=== PATIENT | female | born 1965 | race Caucasian/White ===

== ENCOUNTER 2023-08-07 12:15 | Emergency (ER) | payer OTHER ==
--- NOTE | 2023-08-07 13:20 | XRAY Report ---
PROCEDURE: Shoulder 2+V RT INDICATIONS: Pain TECHNIQUE: 3 views of the shoulder were acquired. COMPARISON: None. FINDINGS: Bones: No fractures or dislocations. No suspicious bony lesions. Visualized ribs appear intact. Soft tissues: Calcific bursitis versus calcific tendinosis. The visualized lungs are within normal l imits. IMPRESSION: Calcific bursitis versus calcific tendinosis. No acute bony abnormality. Reviewed by: Leo Acosta MD on 08/07/2023 1:19 PM PDT Approved by: Leo Acosta MD on 08/07/2023 1:19 PM PDT Station ID: [id number]
--- NOTE | 2023-08-07 13:48 | ED Physician Documentation ---
PD HPI UPPER EXT INJURY - Stated complaint Stated Complaint: RT SHOULDER PX, - Chief complaint Chief Complaint: Ext Problem - History obtained from History obtained from: Patient - Additonal information Additional information: 58-year-old female presents for atraumatic right shoulder pain. States that over the last several days pain has worsened and she has significantly reduced range of motion due to discomfort. 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 Has been taking Tylenol and Motrin at home without significant improvement. Review of Systems Constitutional: denies: Fever, Chills Musculoskeletal: reports: Joint pain. denies: Neck pain, Back pain, Extremity pain, Extremity swelling, Joint swelling PD PAST MEDICAL HISTORY - Past Medical History Past Medical History: Yes - Past Surgical History Past Surgical History: No Ortho: Rotator cuff repair - Present Medications Home Medications: Ambulatory Orders Medication Instructions Recorded Confirmed HYDROcod/ACETAM 5/325 [[place] 5/325] 1 tab PO Q6H PRN #10 tablet 08/07/23 - Allergies Allergies/Adverse Reactions: Allergies Allergy/AdvReac Type Severity Reaction Status Date / Time ampicillin AdvReac Nausea Verified 08/07/23 12:47 - Social History Does the pt smoke?: No Smoking Status: Never smoker Does the pt drink ETOH?: No Does the pt have substance abuse?: No - Immunizations Immunizations are current?: Yes PD ED PE NORMAL - Vitals Vital signs reviewed: Yes - General General: Alert and oriented X 3, Well developed/nourished - Cardiac Cardiac: RRR, Strong equal pulses - Respiratory Respiratory: No respiratory distress - Derm Derm: Normal color, Warm and dry, No rash - Extremities Extremities: No deformity, Other (Generalized tenderness to palpation over entire shoulder joint. Range of motion severely limited in all directions due to pain. Held abducted against abdomen in position of most comfort) - Neuro Neuro: Alert and oriented X 3, human resource internship 2-12 intact, No motor deficit, Normal speech PD Medical Decision Making - ED course Complexity details: reviewed results, re-evaluated patient, considered differential, d/w patient ED course: Gradually worsening shoulder pain with restricted movement. X-rays negative for acute findings. Patient's exam and description of pain suspicious for frozen shoulder. Patient informed of x-ray results, recommended continuing Tylenol and ibuprofen as needed for pain, short course of pain medication sent to pharmacy of choice. Gentle range of motion exercises encouraged even with pain. Orthopedic follow-up suggested. Departure - Departure Disposition: 01 Home, Self Care Clinical Impression: Frozen shoulder Condition: Stable Instructions: ED Capsulitis Adhesive Shoulder Prescriptions: HYDROcod/ACETAM 5/325 [[place] 5/325] 1 tab PO Q6H PRN #10 tablet PRN Reason: Pain Comments: Your x-rays today were normal. Your physical exam leads me to believe that you may be developing a stiff shoulder joint, also known as frozen shoulder. Continue to take Tylenol and ibuprofen for comfort. A short course of additional pain medication has been sent to your pharmacy. You may also apply l idocaine or Salonpas patches. Please follow-up with orthopedic surgery, especially if you do not notice improvement with gentle stretching and range of motion exercises. RX sent to [facility] ([place], [place]) Forms: PCP List Discharge Date/Time: 08/07/23 14:41
[2023-08-07] MEDS: LIDOCAINE PATCH 5% TOP STA (14:28)
[2023-08-07] MEDS: KETOROLAC 30 MG/ML VIAL IM STA (14:28)
[2023-08-07] MEDS: ACETAMINOPHEN 500 MG TABLET PO STA (14:28)
[2023-08-07 14:38] VITALS: BP 117/72; O2SAT 100
== END 2023-08-07 14:41 | disposition home or self-care (01) ==
LOC: ED 12:15
DX: M75.01 Adhesive capsulitis of right shoulder (principal)
CPT/HCPCS: 73030; 96372; 99283; A9270